=== PATIENT | female | born 1965 ===

== ENCOUNTER 2018-05-20 09:33 | Outpatient (CLI) | payer SELFPAY | END 2018-05-20 09:34 | disposition home or self-care (01) | LOC: C.LAB 09:33 | DX: E78.2 Mixed hyperlipidemia (principal); E55.9 Vitamin D deficiency, unspecified; Z12.11 Encounter for screening for malignant neoplasm of colon; Z13.9 Encounter for screening, unspecified ==

== ENCOUNTER 2018-05-21 09:05 | Outpatient (CLI) | payer OTHER, SELFPAY | END 2018-05-21 09:06 | disposition home or self-care (01) | LOC: C.MAMMO 09:05 | DX: Z12.31 Encounter for screening mammogram for malignant neoplasm of breast (principal); E78.2 Mixed hyperlipidemia; E55.9 Vitamin D deficiency, unspecified; Z12.11 Encounter for screening for malignant neoplasm of colon; Z13.9 Encounter for screening, unspecified ==

== ENCOUNTER 2018-06-03 13:45 | Outpatient (CLI) | payer OTHER | END 2018-06-03 13:46 | disposition home or self-care (01) | LOC: C.MAMMO 13:45 ==

== ENCOUNTER 2018-06-30 10:04 | Outpatient (CLI) | payer OTHER | END 2018-06-30 10:05 | disposition home or self-care (01) | LOC: C.MAMMO 10:04 ==